=== PATIENT | male | born 1945 | race African-American/Black ===

== ENCOUNTER 2023-05-27 08:43 | Emergency (ER) | payer MEDICARE, OTHER ==
[~2023-05-27] VITALS: Ht 185.4 cm; Wt 79.4 kg
[~2023-05-27 08:43] MED LIST: BENZ2AMP3; TRIF1TAB2
--- NOTE | 2023-05-27 08:46 | NUR ---
WOLFGANG LUIS FROM [facility] C/O LOWER BACK PAIN 08/07. BACK PAIN STARTED 6 MONTHS AGO AFTER HAVING A STROKE, PRIOR HE NEVER HAD BACK PAIN BEFORE. VITALS ARE WITHIN NORMAL LIMITS. AWAITING MD MILLER.
--- NOTE | 2023-05-27 08:47 | NUR ---
DR BECERRA AT BED SIDE
[2023-05-27] MEDS ORDERED: ACETAMINOPHEN ES 500 MG TABLET PO ONE (09:00)
[2023-05-27] MEDS ORDERED: ACETAMINOPHEN ES 500 MG TABLET ONE (09:01)
--- NOTE | 2023-05-27 09:09 | NUR ---
LAB AT BED SIDE
--- NOTE | 2023-05-27 09:56 | NUR ---
URINE COLLECTED AND SEND TO LAB
[2023-05-27 10:00] LABS: BASOPHILS % (AUTO) 0.8 % (0.0-2.0); EOSINOPHILS % (AUTO) 1.8 % (0.0-6.0); HEMATOCRIT 42 % (39-51); HEMOGLOBIN 13.6 g/dL (13.5-17.5); LYMPHOCYTES # (AUTO) 1.5 K/uL (0.8-4.8); LYMPHOCYTES % (AUTO) 27.6 % (20.0-44.0); MEAN CORPUSCULAR HGB CONC 33 g/dl (31.0-36.0); MEAN CORPUSCULAR VOLUME 90 fL (80-96); MONOCYTES # (AUTO) 0.3 K/uL (0.1-1.30); NEUTROPHILS # (AUTO) 3.4 K/uL (1.8-8.9); NEUTROPHILS % (AUTO) 63.8 % (43.0-81.0); PLATELET COUNT (AUTO) 254 K/uL (150-450); RED BLOOD CELL COUNT(AUTO) 4.63 MIL/uL (4.5-6.0); WHITE BLOOD COUNT (AUTO) 5.3 K/uL (4.3-11.0)
[2023-05-27 10:10] LABS: BILIRUBIN,URINE NEGATIVE (NEGATIVE); COLOR,URINE YELLOW (YELLOW); LEUKOCYTE ESTERASE ,URINE NEGATIVE (NEGATIVE); NITRITE, URINE NEGATIVE (NEGATIVE); PROTEIN,URINE NEGATIVE (NEGATIVE); UGLUCOSE NEGATIVE (NEGATIVE)
[2023-05-27 10:23] LABS: ALANINE AMINOTRANSFERASE 31 U/L (12-78); ALBUMIN 3.4 g/dL (3.4-5.0); ALKALINE PHOSPHATASE 95 U/L (46-116); ASPARTATE AMINOTRANSFERASE 19 U/L (15-37); BILIRUBIN,DIRECT 0.2 mg/dL (0.0-0.2); BILIRUBIN,TOTAL 0.9 mg/dL (0.2-1.0); CALCIUM, SERUM 9.5 mg/dL (8.5-10.1); CARBON DIOXIDE 26 mmol/L (21-32); CHLORIDE 106 mmol/L (98-107); CREATININE 0.6 mg/dL (0.6-1.3); GLUCOSE 86 mg/dL (74-106); LIPASE 148 U/L (73-393); SODIUM SERUM 142 mmol/L (136-145); TOTAL PROTEIN, SERUM 6.8 g/dL (6.4-8.2); UREA NITROGEN, BLOOD 15 mg/dL (7-18)
[2023-05-27 10:34] LABS: BACTERIA,URINE Few /HPF (None Seen); SQUAMOUS EPITHELIAL CELL,UR Rare /HPF (None Seen); WBC,URINE 0-2 /HPF (0-3)
[2023-05-27 10:35] LABS: URINE AMORPHOUS PHOSPHATES Moderate /HPF (None Seen)
--- NOTE | 2023-05-27 11:18 | NUR ---
[facility] ETA [id number]
--- NOTE | 2023-05-27 11:29 | NUR ---
INFORMED THE FASCITLTY REGARDING PATIENT IS COMING BACK
--- NOTE | 2023-05-27 11:30 | NUR ---
DR BECERRA AT BED SIDE
[2023-05-27 12:05] VITALS: BP 134/78; TEMP 98.2; O2SAT 95
--- NOTE | 2023-05-27 12:05 | NUR ---
PATIENT IS GOING TO BACK HIS FACILITY BY ANBULANCE.
--- NOTE | 2023-05-27 12:15 | NUR ---
Patient discharged to home in stable condition. Written and verbal after care instructions given. Patient verbalizes understanding of instruction.
== END 2023-05-27 12:09 ==
LOC: ER 08:50
DX: M54.50 Low back pain, unspecified (principal); I10 Essential (primary) hypertension; Z79.899 Other long term (current) drug therapy
CPT/HCPCS: 36415; 71045-TC; 80048-TC; 80076-TC; 81001; 83690-TC; 84484-TC; 85025-TC; 87086-TC

== ENCOUNTER 2025-09-21 20:32 | Inpatient (IN) | payer MEDICARE, MEDICAID ==
[~2025-09-21] VITALS: Ht 182.9 cm; Wt 66.2 kg
[2025-09-21] MEDS ORDERED: CEFEPIME 1 GM VIAL ONE (21:34)
[2025-09-21] MEDS ORDERED: VANCOMYCIN 1 GM /D5W 250 ML PB IV ONE (21:34)
[2025-09-21] MEDS: CEFEPIME 1 GM in IV D5W 50 ML IV ONE (21:35)
[2025-09-21] MEDS: IV NS 0.9% 1,000 ML BAG IV ONE (21:35)
--- NOTE | 2025-09-21 21:39 | NUR ---
[facility] SWAB COLLECTED AND SENT
[2025-09-21] MEDS: VANCOMYCIN 1 GM in IV D5W 250 ML IV ONE (22:17)
[2025-09-21 22:18] LABS: PLATELET COUNT (AUTO) 308 K/uL (150-450); RED BLOOD CELL COUNT(AUTO) 3.50 MIL/uL (4.5-6.0); RED CELL DISTRIBUTION WIDTH 14.1 % (11.5-15.0); WHITE BLOOD COUNT (AUTO) 7.7 K/uL (4.3-11.0)
[2025-09-21 22:29] LABS: CALCIUM, SERUM 8.2 mg/dL (8.5-10.1); CREATININE 0.8 mg/dL (0.6-1.3); SODIUM SERUM 138.0 mmol/L (136-145); UREA NITROGEN, BLOOD 17.0 mg/dL (7-18)
[2025-09-21 22:32] LABS: INR 1.09 (0.91-1.10)
[2025-09-21 22:36] LABS: ASPARTATE AMINOTRANSFERASE 37.0 U/L (15-37); TOTAL PROTEIN, SERUM 5.5 g/dL (6.4-8.2)
[2025-09-21 22:48] LABS: LACTIC ACID 1.5 mmol/L (0.4-2.0)
[2025-09-22] MEDS ORDERED: ACETAMINOPHEN 325 MG TABLET PO PRN (00:30)
[2025-09-22] MEDS ORDERED: MAGNESIUM HYDROXIDE 30 ML UDC PO PRN (00:30)
[2025-09-22] MEDS ORDERED: DOSING PER PHARMACY-VANCOMYCIN IV XX PRN (00:30)
[2025-09-22] MEDS ORDERED: ONDANSETRON HCL/PF 4 MG/2 ML VIAL IVP PRN (00:30)
[2025-09-22] MEDS ORDERED: MAG HYDROX/AL HYDROX/SIMETH 30 ML UDC PO PRN (00:30)
[2025-09-22] MEDS ORDERED: DOSING PER PHARMACY-CEFEPIME IVPB XX PRN (00:30)
[2025-09-22] MEDS ORDERED: ENOXAPARIN SODIUM 40 MG/0.4 ML DISP.SYRIN SQ SCH (00:30)
--- NOTE | 2025-09-22 01:55 | NUR ---
120-1 Addendum: 09/22/25 at 0246 by NMOLINADIA [id number]
--- NOTE | 2025-09-22 02:13 | NUR ---
REPORT GIVEN TO RAY ORTIZ FOR CHIQUI
[2025-09-22 03:05] VITALS: BP 133/62; TEMP 98.2; O2SAT 99
--- NOTE | 2025-09-22 03:09 | NUR ---
pt taken to [facility]
[2025-09-22 05:16] VITALS: BP 133/62; TEMP 98.2; O2SAT 97
--- NOTE | 2025-09-22 05:19 | NUR ---
MS ELECTRICIAN NOTES: RECEIVED PATIENT AWAKE IN BED, PLACE COMFORTABLY IN BED, BED DIN LOW POSITION CALL LIGHTS WITHIN REACH, NO COMPLAIN OF PAIN AND DISCOMFORT AT THIS TIME, ON ROOM AIR SATURATING WELL, PATIENT IS A/O X-2-3 CONTRACTURE UPPER EXTREMITY, SKIN ASSESSMENT DONE AND PICTURED TAKEN AND DOCUMENT, INVENTORIES DONE AND SIGNED, BED WAS PLACED IN LOW POSITION CALL LIGHTS WITHIN THE REACH, BED ALARM ON, PATIENT WAS ORIENTED TO ROOM REMIND TO USE THE CALL LIGHTS WHEN NEEDED ASSISTANCE, KEPT CLEAN AND DRY ALL NEEDS MET WILL CONTINUE TO MONITOR.
[2025-09-22] MEDS ORDERED: CEFEPIME 1 GM in IV D5W 50 ML IV SCH (06:00)
[2025-09-22 08:00] VITALS: BP 143/66; TEMP 97.3; O2SAT 98
--- NOTE | 2025-09-22 08:09 | NUR ---
MS RN CLOSING NOTES; PATIENT SLEEP IN BED COMFORTABLY AROUSABLE TO VERBAL STIMULI, BE DIN LOW POSITION CALL LIGHTS WITHIN REACH, NO COMPLAIN OF PAIN AND DISCOMFORT AT THIS TIME, ON ROOM AIR SATURATING WELL, PATIENT IS A/O X2-3 ON BED REST KEPT CLEAN AND DRY ALL NEEDS MET ENDORSE TO INCOMING SHIFT.
[2025-09-22] MEDS: CEFEPIME 2 GM in IV D5W 100 ML IV SCH (09:14)
[2025-09-22] MEDS: IV NS 0.9% 1,000 ML IV PRN (09:14)
[2025-09-22] MEDS: ENOXAPARIN SODIUM 40 MG/0.4 ML DISP.SYRIN SQ SCH (09:15)
[2025-09-22] MEDS: PANTOPRAZOLE 40 MG TABLET.DR PO SCH (09:15)
--- NOTE | 2025-09-22 09:35 | NUR ---
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 DISCUSSED SKIN PROTECTION AND SACRAL WOUND TREATMENT RECOMMENDATIONS WITH NURSING STAFF. DEFER TO PODIATRY (DR RUSSO ) FOR LOWER EXTREMITIES. DIETARY CONSULT IN PLACE. IN AGREEMENT WITH PLAN OF CARE. Addendum: 09/22/25 at 0940 [address] ESPINAL CALLED FOR SURGICAL CONSULT. IN AGREEMENT WITH PLAN OF CARE.
[2025-09-22] MEDS ORDERED: FERR325T28 PO (09:53)
[2025-09-22] MEDS ORDERED: ACET325T53 PO (09:53)
[2025-09-22] MEDS ORDERED: PROP15DR EACHEYE (09:53)
[2025-09-22] MEDS ORDERED: METF-440 PO (09:53)
[2025-09-22] MEDS ORDERED: BENZ1TAB7 PO (09:53)
[2025-09-22] MEDS ORDERED: AMLO2.5T4 PO (09:53)
[2025-09-22] MEDS ORDERED: ASPI-1169 PO (09:53)
[2025-09-22] MEDS ORDERED: ZINC50TA69 PO (09:53)
[2025-09-22] MEDS ORDERED: MAGN400T52 PO (09:53)
[2025-09-22] MEDS ORDERED: CARB1TAB21 PO (09:53)
[2025-09-22] MEDS ORDERED: GABA-536 PO (09:53)
[2025-09-22] MEDS ORDERED: CEPH500C2 PO (09:53)
[2025-09-22] MEDS ORDERED: CHOL100062 PO (09:53)
[2025-09-22] MEDS ORDERED: ATOR80TA PO (09:53)
[2025-09-22] MEDS ORDERED: ESCI10TA PO (09:53)
[2025-09-22] MEDS ORDERED: FLUZONE HIGH IM (09:53)
[2025-09-22] MEDS ORDERED: ASCO-352 PO (09:53)
[2025-09-22] MEDS ORDERED: MAGN100T PO ×2 (09:53)
[2025-09-22] MEDS ORDERED: SENN-261 PO (09:53)
[2025-09-22] MEDS ORDERED: TRAM50TA2 PO (09:53)
[2025-09-22] MEDS ORDERED: RISP1TAB97 PO (09:53)
[2025-09-22] MEDS ORDERED: DOCU100C36 PO (09:53)
[2025-09-22] MEDS: VANCOMYCIN 750 MG in IV D5W 250 ML IV SCH (10:09)
[2025-09-22] MEDS: THERAHONEY GEL 1.5 OZ TUBE TP SCH (11:48)
--- NOTE | 2025-09-22 12:05 | NUR ---
MS RN OPENING NOTE : RECEIVED PT IN BED IN SEMI-FOWLERS POSITION. ON ROOM AIR, BREATHING EVEN AND UNLABORED, NO INDICATION OF ACUTE RESPIRATORY DISTRESS NOTED. PT IS AOX3, ABLE TO VERBALIZED NEEDS AND CAN FOLLOW COMMANDS EASILY. IV SITE ON BOTH JAYDEN #20G RUNNING 0/9% NS 75CC/HR, AND JULIÁN #20. BOTH LINE ARE PATENT AND FLUSH WELL. VOIDING VIA PW WHICH IS ATTACHED TO SUCTION WALL. BB AND UNABLE TO MOVE AND AMBULATE, AND NEEDS TOTAL ASSIST. ALL FALL AND SAFETY PRECAUTION IN PLACE.
[2025-09-22 13:41] LABS: CALCIUM, SERUM 8.3 mg/dL (8.5-10.1); CREATININE 0.7 mg/dL (0.6-1.3); PHOSPHORUS 2.7 mg/dL (2.5-4.9); SODIUM SERUM 139.0 mmol/L (136-145); UREA NITROGEN, BLOOD 13.0 mg/dL (7-18)
[2025-09-22 13:44] LABS: PLATELET COUNT (AUTO) 281 K/uL (150-450); RED BLOOD CELL COUNT(AUTO) 3.45 MIL/uL (4.5-6.0); RED CELL DISTRIBUTION WIDTH 14.0 % (11.5-15.0); WHITE BLOOD COUNT (AUTO) 6.4 K/uL (4.3-11.0)
[2025-09-22 13:47] LABS: ERYTHROCYTE SEDIMENTATION RATE 16 MM/HR (0-20)
[2025-09-22] MEDS ORDERED: ARGININE/GLUTAMINE/CALCIUM BMB 1 EACH POWD.PACK PO SCH (15:00)
[2025-09-22] MEDS ORDERED: ENSURE ENLIVE 237 ML LIQUID (VANILLA) PO SCH (15:00)
[2025-09-22 16:00] VITALS: BP 147/69; TEMP 97.9; O2SAT 97
[2025-09-22] MEDS: ARGININE/GLUTAMINE/CALCIUM BMB 1 EACH POWD.PACK PO SCH (18:07)
--- NOTE | 2025-09-22 19:18 | NUR ---
MS RN CLOSING NOTE : PT IN BED IN R SIDE POSITION. ON ROOM AIR, BREATHING EVEN AND UNLABORED, NO INDICATION OF ACUTE RESPIRATORY DISTRESS NOTED. PT IS AOX3, ABLE TO VERBALIZED NEEDS AND CAN FOLLOW COMMANDS EASILY. IV SITE ON BOTH JAYDEN #20G RUNNING 0/9% NS 75CC/HR, AND JULIÁN #20. BOTH LINE ARE PATENT AND FLUSH WELL. VOIDING VIA PW WHICH IS ATTACHED TO SUCTION WALL WITH 600 CC OUTPUT. BB AND UNABLE TO MOVE AND AMBULATE, AND NEEDS TOTAL ASSIST. RECEIVED ALL DUE MEDS ALL FALL AND SAFETY PRECAUTION IN PLACE.
[2025-09-22 20:00] VITALS: BP 130/60; TEMP 97.3; O2SAT 97
--- NOTE | 2025-09-22 20:00 | NUR ---
opening notes RECEIVED PT IN BED AWAKE,ALERT AND ORIENTEDX3,VSS,DENIES PAIN.. ON ROOM AIR, BREATHING EVEN AND UNLABORED, NO INDICATION OF ACUTE RESPIRATORY DISTRESS NOTED. ABLE TO VERBALIZED NEEDS AND CAN FOLLOW COMMANDS EASILY. IV SITE ON BOTH JAYDEN #20G RUNNING 0/9% NS 75CC/HR, AND JULIÁN #20. BOTH LINE ARE PATENT AND FLUSH WELL. VOIDING VIA PW WHICH IS ATTACHED TO SUCTION WALL. BED BOUND,CONTRACTED ALL EXTREMITIES, UNABLE TO MOVE AND AMBULATE, AND NEEDS TOTAL ASSIST.SKIN W/ MULTIPLE WOUNDS ,BED ALARM ON.PLAN OF CARE ONGOING..
--- NOTE | 2025-09-23 07:18 | NUR ---
CLOSING NOTES PT REMAINS STABLE.ALL NEEDS PROVIDED.AM CARE DONE,ON AIR BED MATTRESS,,ENDORSED TO AM NURSE..
--- NOTE | 2025-09-23 07:19 | NUR ---
MS RN OPENING NOTES RECEIVED PATIENT IN BED, ASLEEP BUT EASY TO AWAKEN. A/O X3-ABLE TO MAKE NEEDS KNOWN. NO SIGNS OF CARDIAC DISTRESS NOTED-ON ROOM AIR, TOLERATING WELL. NO SOB, BREATHING EVEN AND UNLABORED. WITH IV ACCESSES ON RIGHT UPPER ARM #20G-SALINE LOCKED AND ON LEFT UPPER ARM #20G-INFUSING WELL WITH NORMAL SALINE AT 75CC/HOUR: INTACT AND PATENT. PATIENT ALSO HAS MALE PUREWICK DRAINING URINE VIA WALL SUCTION. PATIENT DENIES PAIN/DISCOMFORT AT THIS TIME. SAFETY MEASURES IN PLACED. BED IN LOW AND LOCKED POSITION. CALL LIGHT AND TABLE WITHIN EASY REACH. HOB ELEVATED. SIDE RAILS UP X4. WILL CONTINUE WITH PLAN OF CARE.
[2025-09-23 07:46] LABS: PLATELET COUNT (AUTO) 303 K/uL (150-450); RED BLOOD CELL COUNT(AUTO) 3.65 MIL/uL (4.5-6.0); RED CELL DISTRIBUTION WIDTH 13.9 % (11.5-15.0); WHITE BLOOD COUNT (AUTO) 5.5 K/uL (4.3-11.0)
[2025-09-23 08:00] VITALS: BP 129/76; TEMP 98.1; O2SAT 96
[2025-09-23 08:09] LABS: CALCIUM, SERUM 8.4 mg/dL (8.5-10.1); CREATININE 0.6 mg/dL (0.6-1.3); PHOSPHORUS 2.5 mg/dL (2.5-4.9); SODIUM SERUM 139.0 mmol/L (136-145); UREA NITROGEN, BLOOD 12.0 mg/dL (7-18)
[2025-09-23] MEDS: ENSURE ENLIVE 237 ML LIQUID (VANILLA) PO SCH (08:26)
--- NOTE | 2025-09-23 09:36 | NUR ---
RN NOTES THIS CLINICAL LABORATORY AIDES TEACHER CALLED PATIENT'S FACILITY, [facility] VIA [phone], TO VERIFY PATIENT'S DIET AND TEXTURE. SPOKE WITH STAFF LANCE, WHO STATED THE PATIENT IS ON DM DIET WITH PUREED TEXTURE. MD RAMIREZ MADE AWARE OF THE PATIENT'S DIET.
[2025-09-23] MEDS: POTASSIUM CHLORIDE 20 MEQ TAB.PRT.SR PO SCH (09:48)
[2025-09-23 16:00] VITALS: BP 155/78; TEMP 98.2; O2SAT 96
--- NOTE | 2025-09-23 18:47 | NUR ---
MS RN CLOSING NOTES PATIENT IN BED, AWAKE AND WATCHING TV. A/O X3-WAS ABLE TO MAKE NEEDS KNOWN. NO SIGNS OF CARDIAC DISTRESS NOTED-ON ROOM AIR, TOLERATED WELL. NO SOB, BREATHING EVEN AND UNLABORED. WITH IV ACCESSES ON RIGHT UPPER ARM #20G-SALINE LOCKED AND ON LEFT UPPER ARM #20G-INFUSING WELL WITH NORMAL SALINE AT 75CC/HOUR: INTACT AND PATENT. PATIENT ALSO HAS MALE PUREWICK DRAINING URINE VIA WALL SUCTION(600CC). DUE MEDS GIVEN. NURSING CARE RENDERED. WOUND CARE PROVIDED. PATIENT DENIES PAIN/DISCOMFORT AT THIS TIME. SAFETY MEASURES IMPLEMENTED. BED IN LOW AND LOCKED POSITION. CALL LIGHT AND TABLE WITHIN EASY REACH. HOB ELEVATED. SIDE RAILS UP X4. WILL CONTINUE WITH PLAN OF CARE.
--- NOTE | 2025-09-23 19:30 | NUR ---
RN OPENING NOTES RECEIVED PT IN BED, AWAKE, A/OX2. ON ROOM AIR WITH RESPIRATIONS EVEN AND UNLABORED. IV ACCESS AT JAYDEN 20 ON SL AND JULIÁN 20 G INFUSING WELL WITH NS @ 75ML/HR. DENIES PAIN OR ANY DISTRESS AT THIS TIME. ON AIR MATTRESS, OFFLOADED HEELS. SAFETY PRECAUTIONS IN PLACE: BED AT LOWEST AND LOCKED POSITION, SIDE RAILS UP X3, BED ALARM ON, CALL LIGHT BUTTON AND TABLE WITHIN REACH. PLAN OF CARE ONGOING -
[2025-09-23 22:59] VITALS: BP 151/78; TEMP 98.2; O2SAT 96
--- NOTE | 2025-09-24 06:58 | NUR ---
RN CLOSING NOTE PT IN BED, ASLEEP, AWAKENS EASILY, A/OX2. REMAINED STABLE ON ROOM AIR, RESPIRATIONS EVEN AND UNLABORED. IV ACCESS KEPT INFUSING WELL WITH NS @ 75ML/HR. ALL DUE MEDS GIVEN, ALL NEEDS ATTENDED. KEPT PT CLEAN AND DRY. REMAINED STABLE ON SHIFT, ENDORSED TO AM NURSE FOR CHIQUI.
--- NOTE | 2025-09-24 07:08 | NUR ---
MS RN OPENING NOTES RECEIVED PATIENT IN BED, ASLEEP BUT EASY TO AWAKEN. A/O X2-3-ABLE TO MAKE NEEDS KNOWN. NO SIGNS OF CARDIAC DISTRESS NOTED-ON ROOM AIR, TOLERATING WELL. NO SOB, BREATHING EVEN AND UNLABORED. WITH IV ACCESSES ON RIGHT UPPER ARM #20G-SALINE LOCKED AND ON LEFT UPPER ARM #20G-INFUSING WELL WITH NORMAL SALINE AT 75CC/HOUR: INTACT AND PATENT. PATIENT ALSO HAS MALE PUREWICK DRAINING URINE VIA WALL SUCTION. PATIENT DENIES PAIN/DISCOMFORT AT THIS TIME. SAFETY MEASURES IN PLACED. BED IN LOW AND LOCKED POSITION. CALL LIGHT AND TABLE WITHIN EASY REACH. HOB ELEVATED. SIDE RAILS UP X4. WILL CONTINUE WITH PLAN OF CARE.
[2025-09-24 08:00] VITALS: BP 152/84; TEMP 97.7; O2SAT 97
[2025-09-24 16:00] VITALS: BP 131/76; TEMP 98.1; O2SAT 96
--- NOTE | 2025-09-24 19:12 | NUR ---
MS RN OPENING NOTES RECEIVED PATIENT IN BED, ASLEEP BUT EASY TO AWAKEN. A/O X2-3-ABLE TO MAKE NEEDS KNOWN. NO SIGNS OF CARDIAC DISTRESS NOTED-ON ROOM AIR, TOLERATING WELL. NO SOB, BREATHING EVEN AND UNLABORED. WITH IV ACCESSES ON RIGHT UPPER ARM #20G-SALINE LOCKED AND ON LEFT UPPER ARM #20G-INFUSING WELL WITH NORMAL SALINE AT 75CC/HOUR: INTACT AND PATENT. PATIENT ALSO HAS MALE PUREWICK DRAINING URINE VIA WALL SUCTION. PATIENT DENIES PAIN/DISCOMFORT AT THIS TIME. SAFETY MEASURES IN PLACED. BED IN LOW AND LOCKED POSITION. CALL LIGHT AND TABLE WITHIN EASY REACH. HOB ELEVATED. SIDE RAILS UP X4. FOR POSSIBLE DC IN AM TO SNF.
--- NOTE | 2025-09-24 19:13 | NUR ---
MS RN CLOSING NOTES PATIENT IN BED, AWAKE. A/O X3-WAS ABLE TO MAKE NEEDS KNOWN. NO SIGNS OF CARDIAC DISTRESS NOTED-ON ROOM AIR, TOLERATED WELL. NO SOB, BREATHING EVEN AND UNLABORED. WITH IV ACCESSES ON RIGHT UPPER ARM #20G-SALINE LOCKED AND ON LEFT UPPER ARM #20G-INFUSING WELL WITH NORMAL SALINE AT 75CC/HOUR: INTACT AND PATENT. PATIENT ALSO HAS MALE PUREWICK DRAINING URINE VIA WALL SUCTION(2020CC). DUE MEDS GIVEN. NURSING CARE RENDERED. WOUND CARE PROVIDED. PATIENT DENIES PAIN/DISCOMFORT AT THIS TIME. PATIENT IS FOR DC TOMORROW AT [facility] AT 0900H. SAFETY MEASURES IMPLEMENTED. BED IN LOW AND LOCKED POSITION. CALL LIGHT AND TABLE WITHIN EASY REACH. HOB ELEVATED. SIDE RAILS UP X4. WILL ENDORSE TO NIGHT RN FOR CHIQUI.
[2025-09-24 20:00] VITALS: BP 134/77; TEMP 98.1; O2SAT 96
--- NOTE | 2025-09-25 06:46 | NUR ---
MS RN CLOSING NOTES PATIENT IN BED, AWAKE. A/O X3-WAS ABLE TO MAKE NEEDS KNOWN. NO SIGNS OF CARDIAC DISTRESS NOTED-ON ROOM AIR, TOLERATED WELL. NO SOB, BREATHING EVEN AND UNLABORED. WITH IV ACCESSES ON RIGHT UPPER ARM #20G-SALINE LOCKED AND ON LEFT UPPER ARM #20G-INFUSING WELL WITH NORMAL SALINE AT 75CC/HOUR: INTACT AND PATENT.ON PUREWICK DRAINING URINE VIA WALL SUCTION. DUE MEDS GIVEN. NURSING CARE RENDERED. WOUND CARE PROVIDED. PATIENT DENIES PAIN/DISCOMFORT AT THIS TIME. 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 SAFETY MEASURES IMPLEMENTED. BED IN LOW AND LOCKED POSITION. CALL LIGHT AND TABLE WITHIN EASY REACH. HOB ELEVATED. SIDE RAILS UP X4. NEEDS ATTENDED
--- NOTE | 2025-09-25 07:04 | NUR ---
MS RN OPENING NOTES RECEIVED PATIENT IN BED, ASLEEP BUT EASY TO AWAKEN. A/O X2-3-ABLE TO MAKE NEEDS KNOWN. NO SIGNS OF CARDIAC DISTRESS NOTED-ON ROOM AIR, TOLERATING WELL. NO SOB, BREATHING EVEN AND UNLABORED. WITH IV ACCESSES ON RIGHT UPPER ARM #20G-SALINE LOCKED AND ON LEFT UPPER ARM #20G-INFUSING WELL WITH NORMAL SALINE AT 75CC/HOUR: INTACT AND PATENT. PATIENT ALSO HAS MALE PUREWICK DRAINING URINE VIA WALL SUCTION. PATIENT DENIES PAIN/DISCOMFORT AT THIS TIME. patient awaiting dc to [facility] at 0900h. SAFETY MEASURES IN PLACED. BED IN LOW AND LOCKED POSITION. CALL LIGHT AND TABLE WITHIN EASY REACH. HOB ELEVATED. SIDE RAILS UP X4. WILL CONTINUE WITH PLAN OF CARE.
[2025-09-25 08:00] VITALS: BP 145/78; TEMP 98.4; O2SAT 96
[2025-09-25 08:44] LABS: CALCIUM, SERUM 8.7 mg/dL (8.5-10.1); CREATININE 0.6 mg/dL (0.6-1.3); SODIUM SERUM 138.0 mmol/L (136-145); UREA NITROGEN, BLOOD 9.0 mg/dL (7-18)
--- NOTE | 2025-09-25 10:09 | NUR ---
PERFORMANCE IMPROVEMENT ANALYST NOTES PATIENT WAS SEEN AND ORDERED FOR DC BY DR. DELFINO RAMIREZ. PATIENT WILL BE GOING TO [facility]-GIVEN REPORT TO DIANA MARTINEZ VIA TELEPHONE CALL AT [phone]. PATIENT IS A/O X3-ABLE TO MAKE NEEDS KNOWN. PATIENT IS CONTACTED AND UNABLE TO SIGN FORMS. DIANA LAW COSIGNED THE DC AND BELONGINGS FORMS. IV ACCESSES AND NAME WRISTBAND REMOVED. PHOTO DOCUMENTATION WAS TAKEN AND FILED TO CHART. PATIENT LEFT THE UNIT IN STABLE CONDITION WITH EMT'S. CHARGE NURSE AND MD MADE AWARE OF THE DC.
[2025-09-25] MEDS ORDERED: POTASSIUM CHLORIDE 20 MEQ TAB.PRT.SR PO SCH (12:00)
== END 2025-09-25 09:40 | DRG 592 ==
LOC: ER 20:34 → MEDSG1 09-22 01:59 → MED 09-22 02:20
PROVIDERS: ADMIT Nurse Practitioner Family; ATTEND Internal Medicine
DX: L89.159 Pressure ulcer of sacral region, unspecified stage (principal); G93.41 Metabolic encephalopathy; L89.620 Pressure ulcer of left heel, unstageable; E44.1 Mild protein-calorie malnutrition; G20.A1 Parkinson's disease without dyskinesia, without mention of fluctuations; E88.09 Other disorders of plasma-protein metabolism, not elsewhere classified; D64.9 Anemia, unspecified; E11.65 Type 2 diabetes mellitus with hyperglycemia; L03.116 Cellulitis of left lower limb; L89.323 Pressure ulcer of left buttock, stage 3; I10 Essential (primary) hypertension; D68.69 Other thrombophilia; E86.0 Dehydration; L89.316 Pressure-induced deep tissue damage of right buttock; E78.5 Hyperlipidemia, unspecified; Z86.73 Personal history of transient ischemic attack (TIA), and cerebral infarction without residual deficits; M51.369 Other intervertebral disc degeneration, lumbar region without mention of lumbar back pain or lower extremity pain; Z79.899 Other long term (current) drug therapy; Z79.84 Long term (current) use of oral hypoglycemic drugs; Z79.82 Long term (current) use of aspirin; L98.9 Disorder of the skin and subcutaneous tissue, unspecified
CPT/HCPCS: 36415; 71045-TC; 80048-TC; 80076-TC; 80202-TC; 83605-TC; 83735-TC; 84100-TC; 85025-TC; 85652-TC; 85730-TC; 87040-TC; 87070-TC; 87081-TC; A4223; A6213; A6253; A6254; G0378; J0692; J1650; J3373; J3374; J7030; J7040; J7060